=== PATIENT | female | born 1980 | race Caucasian/White ===

== ENCOUNTER 2023-03-25 16:18 | Outpatient (CLI) | payer BC, SELFPAY ==
--- NOTE | ~2023-03-25 | MM_ITS ---
EXAMINATION: MM screening clyde BI w rocael HISTORY: Screening mammogram TECHNIQUE: Craniocaudal and mediolateral oblique 3-D tomosynthesis images were obtained and synthetic 2-D images were generated. CAD analysis was submitted and interpreted. COMPARISON: July 09, 2011 diagnostic left mammogram and left breast ultrasound July 03, 2011 bilateral screening mammogram BREAST PARENCHYMAL COMPOSITION: There are scattered areas of fibroglandular density. FINDINGS: There are numerous closely associated small circumscribed nodular densities at mid depth in the lower inner quadrant of the right breast. The mastoid mammogram and right breast ultrasound exam ination are recommended for further evaluation. Otherwise no suspicious mass, architectural distortion, malignant calcification, skin thickening or r etraction of either breast is evident. IMPRESSION: 1. Asymmetric closely associated small nodular densities in the lower inner right breast 2. Diagnostic right mammogram and right breast ultrasound examination are recommended. BI-RADS Category 0: Incomplete; need additional imaging evaluation Reviewed, dictated and finalized at location A. IMPRESSION: 1. Asymmetric closely associated small nodular densities in the lower inner rig ht breast 2. Diagnostic right mammogram and right breast ultrasound examination are recom mended. BI-RADS Category 0: Incomplete; need additional imaging evaluation
== END 2023-03-25 16:19 | disposition home or self-care (01) ==
LOC: ANHIMG 16:26
PROVIDERS: PCP Nurse Practitioner Family; Visit Provider Nurse Practitioner Family
DX: Z12.31 Encounter for screening mammogram for malignant neoplasm of breast (principal); R92.8 Other abnormal and inconclusive findings on diagnostic imaging of breast
CPT/HCPCS: 77063; 77067

== ENCOUNTER 2023-05-08 12:09 | Outpatient (CLI) | payer BC, SELFPAY ==
--- NOTE | ~2023-05-08 | MMUS_ITS ---
EXAMINATION: MM diagnostic clyde RT w rocael, US breast RT limited HISTORY: Possible right breast masses on screening mammogram TECHNIQUE: Additional 3-D tomosynthesis images of the right breast were performed and synthetic 2-D i mages were generated. CAD analysis was submitted and interpreted. High resolution limited right breas t ultrasound was performed. COMPARISON: 03/25/2023, 07/03/2011 BREAST PARENCHYMAL COMPOSITION: There are scattered areas of fibroglandular density. FINDINGS: MAMMOGRAPHIC FINDINGS: There is a return to baseline fibroglandular appearance with spot compression of the right breast in the area questioned on screening mammogram. Chronic focal asymmetry is seen in the middle third of th e lower breast at the 6:00 location. No suspicious mass, calcification, or architectural distortion a re identified. ULTRASOUND: There is no evidence of focal abnormal solid or cystic mass in the vicinity of the mammographic findi ng in question. IMPRESSION: 1. No mammographic or sonographic evidence of malignancy. 2. Recommend routine screening mammography in one year. BI-RADS Category 2: Benign finding(s). Reviewed, dictated and finalized at location A. NG SPRAYER IMPRESSION: 1. No mammographic or sonographic evidence of malignancy. 2. Recommend routine screening mammography in one year. BI-RADS Category 2: Benign finding(s).
== END 2023-05-08 12:10 | disposition home or self-care (01) ==
LOC: ANHIMG 12:11
PROVIDERS: PCP Nurse Practitioner Family; Visit Provider Nurse Practitioner Family
DX: R92.8 Other abnormal and inconclusive findings on diagnostic imaging of breast (principal)
CPT/HCPCS: 76642; 77061; 77065; G0279

== ENCOUNTER 2023-06-19 00:20 | Day surgery (SDC) | payer BC, SELFPAY ==
[2023-05-27 10:01] VITALS: BMI 31.6
--- NOTE | 2023-06-17 08:30 | SUR.PREOP ---
Patient called regarding upcoming procedure. Reviewed preop instructions, appointment times, and procedure prep.
[2023-06-19 08:27] VITALS: BP 118/72; PULSE 83; RESP 18; TEMP 36.7; O2SAT 98
[2023-06-19] MEDS: LACTATED RINGERS 1,000 ML 150 ML IV CONT (08:40)
--- NOTE | 2023-06-19 08:54 | P.PNAN_ITS ---
Anes - Initial Pre Proc Eval Procedure: Operation Date: 06/19/23 09:30 Proposed Procedures p Screening Colonoscopy - Valentín Roach MD Date/Time: 06/19/23 08:54 Surgeon: Valentín Roach MD Pre Op Diagnosis: neoplasm screening Patient Data Age: 43 Gender: F Height: 1.78 m Weight: 102.1 kg Last Vital Signs Temp 98.1 F 06/19/23 08:27 Pulse 83 06/19/23 08:27 Resp 18 06/19/23 08:27 BP 118/72 06/19/23 08:27 Pulse Ox 98 06/19/23 08:27 O2 Del Method Room Air 06/19/23 08:27 Allergies Allergy/AdvReac Type Severity Reaction Status Date / Time No Known Allergies Allergy Mild Verified 06/19/23 08:26 Home Medications Medication Instructions Recorded Confirmed Type No Home Medications 05/27/23 05/27/23 History Patient hx anesthesia problems: none Family hx anesthesia problems: none Results Review: All pre-operative results and documents have been reviewed as part of the pre-operative evaluation. [facility] Past Medical History Medical History (Updated 06/19/23 @ 09:03 by Valentín Roach MD) Colon cancer screening Family History Family History (Updated 12/28/15 @ 23:19 by DOCTOR UNKNOWN) Father Hypertension Mother Family history of malignant neoplasm of breast in first degree relative Social History Social History Smoking status: Never smoker Alcohol intake: current Drinks per week: 5 Substance use type: does not use Living arrangements: alone Spiritual care concerns: No Anes - Eval Final PreProcedure Day of Procedure 06/19/23 08:54 Patient weight: obese Heart: regular rate and rhythm Lungs: clear to auscultation Airway: Mallampati scale class II Neurological: alert and oriented Last oral intake: >/= 8 hours ASA classification: II Emergent: no Anesthetic plan: proceed Anesthesia type and monitoring: general GIVS and standard monitoring Results Review: All pre-operative results and documents have been reviewed as part of the pre- operative evaluation. Informed Consent: The patient's anesthetic plan and its attendant risks and benefits were discussed with the patient/family/POA. Questions were solicited and answers provided to the satisfaction of the patient/family/POA.
--- NOTE | 2023-06-19 09:03 | PM.HPGS ---
History of Present Illness History of Present Illness Consent: Risks, benefits, and alternatives have been discussed and questions answered. Patient agrees to proceed with procedure. Chief complaint: neoplasm screening Narrative: Suzy Ivan is a 43 year old female here for first screening colonoscopy Review of Systems Constitutional: Constitutional: Denies headache(s) and Denies weakness Eyes: Eyes: Denies blurry vision ENT: Reports Normal hearing present, Denies headache(s) and Denies neck pain Cardiovascular: Cardiovascular: Denies chest pain and Denies dyspnea Respiratory: Respiratory: Denies dyspnea Gastrointestinal: Gastrointestinal: Reports no additional gastrointestinal complaints Genitourinary: Genitourinary: Denies dysuria Musculoskeletal: Musculoskeletal: Denies neck pain Integumentary/Breasts: Skin/Breast: Denies dry skin Neurologic: Reports Normal hearing present, Denies headache(s) and Denies weakness Psychiatric: Psychiatric: Denies anxiety Endocrine: Endocrine: Denies change in body appearance Hematologic/Lymphatic: Hematologic/Lymphatic: Denies easy bleeding Allergic/Immunologic: Allergic/Immunologic: Denies urticaria PMFSH Past Medical History Medical History (Updated 06/19/23 @ 09:03 by Valentín Roach MD) Colon cancer screening Family History Family History (Updated 12/28/15 @ 23:19 by DOCTOR UNKNOWN) Father Hypertension Mother Family history of malignant neoplasm of breast in first degree relative Social History Social History Smoking status: Never smoker Alcohol intake: current Drinks per week: 5 Substance use type: does not use Living arrangements: alone Spiritual care concerns: No Meds Home Medications and Allergies Home Medications Medication Instructions Recorded Confirmed Type No Home Medications 05/27/23 05/27/23 History Allergies Allergy/AdvReac Type Severity Reaction Status Date / Time No Known Allergies Allergy Mild Verified 06/19/23 08:26 Vital Signs Vital Signs - 24 hr 06/19/23 08:27 Temperature 98.1 F Pulse Rate 83 Respiratory Rate 18 Blood Pressure 118/72 Pulse Oximetry 98 Oxygen Delivery Room Air Exam Const: General: comfortable and no acute distress HENMT: Face/Nose/Sinus: Normal nares present Eyes: General: appearance normal, both eyes and all related structures Neck: Neck: no JVD Resp: Auscultation: clear to auscultation bilaterally Cardio: Rate: regular rate Rhythm: regular rhythm GI: Inspection: non-distended GI Palp: Yes Soft to palpation Skin: General skin exam: normal color Neuro: General: gait normal Speech: normal speech Extrem: General: normal to inspection Psych: Mental Status: mental status grossly normal Assessment and Plan Assessment and plan (1) Colon cancer screening: Code(s): Z12.11 - Encounter for screening for malignant neoplasm of colon Status: Acute Assessment and Plan: colonoscopy
[2023-06-19 09:24] VITALS: BP 99/55; PULSE 74; RESP 20; O2SAT 99
[2023-06-19 09:34] VITALS: BP 111/60; PULSE 68; RESP 20; O2SAT 100
[2023-06-19 09:44] VITALS: BP 113/79; PULSE 74; RESP 20; O2SAT 100
== END 2023-06-19 09:50 | disposition home or self-care (01) ==
PROVIDERS: PCP Nurse Practitioner Family; Visit Provider Internal Medicine Gastroenterology
PROC: 0DJD8ZZ Inspection of Lower Intestinal Tract, Via Natural or Artificial Opening Endoscopic (ICD-10-PCS; CPT 45378; principal; 2023-06-19 09:30)
DX: Z12.11 Encounter for screening for malignant neoplasm of colon (principal); K64.8 Other hemorrhoids; E66.9 Obesity, unspecified; Z68.32 Body mass index [BMI] 32.0-32.9, adult
CPT/HCPCS: 45378; J2704; J7120